=== PATIENT | male | born 1960 | race Caucasian/White ===

== ENCOUNTER → 2020-03-09 15:12 | Outpatient (CLI) | payer BC, SELFPAY ==
[2020-03-09 15:20] LABS: Basophils # 0.1 K/mm3 (0-0.2); Basophils % 1.7 % (0.1-2.0); Eosinophils # 0.3 K/mm3 (0.0-0.4); Eosinophils % 5.2 % (0.1-12.0); Hematocrit 55.2 % (42.0-52.0); Lymphocytes # 1.2 K/mm3 (0.7-4.5); Lymphocytes % 23.5 % (10-50); Mean Corpuscular HGB Conc 34.2 g/dL (31.8-35.4); Mean Corpuscular Volume 96.5 fl (80-94); Monocytes # 0.4 K/mm3 (0.1-1.0); Monocytes % 7.1 % (1.7-9.3); Neutrophils # 3.3 K/mm3 (1.8-7.8); Neutrophils % 62.5 % (37.0-80.0); Platelet Count 232 K/mm3 (142-424); Red Blood Count 5.72 M/mm3 (4.60-6.20); White Blood Count 5.3 K/mm3 (4.8-10.8)
[2020-03-09 15:21] LABS: Hemoglobin 18.9 g/dL (14.1-18.0)
[2020-03-09 15:26] LABS: Chloride 104 mmol/L (98-107)
[2020-03-09 15:27] LABS: Potassium 4.6 mmoL/L (3.5-5.1); Sodium 137 mmol/L (136-145)
[2020-03-09 15:29] LABS: Alanine Aminotransferase 30 U/L (12-78); Alkaline Phosphatase 108 U/L (38-126); Aspartate Amino Transferase 26 U/L (17-59); Bilirubin,Total 0.9 mg/dl (0.2-1.3); Blood Urea Nitrogen 16 mg/dl (9-20); Estimated Glomerular Filt Rate 77 ml/min (>60); GFR (African American) 93 ML/MIN (>60)
[2020-03-09 15:30] LABS: Albumin Level 4.5 g/dl (3.5-5.0); Albumin/Globulin Ratio 1.4 (1.1-1.8); Anion Gap 8.6 mEq/L (5-15); Calcium 10.1 mg/dl (8.4-10.2); Carbon Dioxide 29 mmol/L (22.0-30.0); Chol/HDL Ratio 6.3 (1-3.5); Cholesterol 194 mg/dl (140-200); Globulin 3.3 g/dL (1.3-3.2); Glucose 254 mg/dl (74-100); HDL Cholesterol 31 mg/dl (40-60); Total Protein,Serum 7.8 g/dl (6.3-8.2); Triglycerides 273 mg/dl (30-150); VLDL Cholesterol 55 mg/dL (0-40)
[2020-03-09 15:41] LABS: Direct LDL Cholesterol 118.51 mg/dL (100-129)
[2020-03-09 16:00] LABS: Thyroid Stimulating Hormone 1.39 uIU/mL (0.465-4.68)
[2020-03-11 10:17] LABS: PSA, Free 0.44 ng/mL; Prostate Specific Ag 1.3 ng/mL (0.0-4.0)
== END ==
PROVIDERS: Visit Provider Family Medicine
DX: I10 Essential (primary) hypertension (principal); E78.5 Hyperlipidemia, unspecified; F51.01 Primary insomnia; F39 Unspecified mood [affective] disorder; F17.210 Nicotine dependence, cigarettes, uncomplicated; M54.5 Low back pain
CPT/HCPCS: 80053; 80061; 83036; 84153; 84154; 84443; 85025

== ENCOUNTER → 2020-10-14 14:13 | Outpatient (CLI) | payer BC, SELFPAY ==
--- NOTE | 2020-10-14 14:17 | XR_ITS ---
PROCEDURE: XR HIP LT 2-3V W/PELVIS CLINICAL INDICATION: pain Left hip pain COMPARISON: No exams were available for comparison FINDINGS: No fracture or dislocation. No lytic or blastic change. There is some mild osteophyte formation along the inferior aspect of the acetabulum on both sides. IMPRESSION: Mild degenerative change otherwise negative Dictated by: Sreedhar Coyle MD 10/14/2020 15:39 Sreedhar Coyle MD in [place] 10/14/2020 15:39
--- NOTE | 2020-10-14 14:17 | XR_ITS ---
PROCEDURE: XR LUMBAR SPINE 2-3V CLINICAL INDICATION: pain COMPARISON: No exams were available for comparison FINDINGS: There is normal alignment. No acute fracture or dislocation is evident. No lytic or blastic change. There are degenerative changes in the lower thoracic spine. Small endplate osteophytes are present at L3 and L4. Bilateral renal calculi are noted measuring 4 mm in the lower pole on the right upper pole on the left and lower pole on the left. No obvious ureteral calculi. IMPRESSION: 1. Mild degenerative change of the spine. 2. Bilateral nephrolithiasis Dictated by: Sreedhar Coyle MD 10/14/2020 15:42 Sreedhar Coyle MD in [place] 10/14/2020 15:42
== END ==
PROVIDERS: PCP Family Medicine; Visit Provider Family Medicine
DX: M25.552 Pain in left hip (principal); M54.5 Low back pain
CPT/HCPCS: 72100; 73502

== ENCOUNTER → 2020-10-14 19:35 | Outpatient (CLI) | payer BC, SELFPAY ==
[2020-10-14 20:02] LABS: Hemoglobin A1C 7.6 % (4.0-6.0)
== END ==
PROVIDERS: Visit Provider Family Medicine
DX: E11.9 Type 2 diabetes mellitus without complications (principal); Z79.84 Long term (current) use of oral hypoglycemic drugs
CPT/HCPCS: 83036

== ENCOUNTER → 2021-05-23 08:55 | Outpatient (POV) | payer OTHER, SELFPAY ==
[2021-05-23 09:03] VITALS: BP 144/86; PULSE 74; RESP 18; TEMP 36.2; O2SAT 97; BMI 27.8
--- NOTE | 2021-05-23 09:12 | HMH.PMCON ---
Assessment and Plan (1) Sacroiliitis Status: Acute Category: Medical Code(s): M46.1 - Sacroiliitis, not elsewhere classified - Assessment and plan all Dx Assessment and Plan for all problems:: Patient presents with worsening left hip/SI pain that started about a year ago. This is worse with prolonged sitting, standing, and walking. 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 This is making his work a lot more unbearable. Patient has tried physical therapy and at home exercises for greater than 6 weeks. Left SI is positive for ADRY, Kristi's, [place]'s, [place]'s, compression, and distraction. Risks and benefits of the procedure have been explained to the patient. Patient would like to proceed with the procedure. Patient has been instructed to contact the clinic with any concerns before the next appointment. Dr. Sterling has reviewed this note and agrees with this plan of care. This note was dictated using voice recognition software and make contain errors or omissions. HPI - Data of Consult Patient: new to practice Consult date: 05/23/21 Requesting Physician: JAYME Guthrie Primary Care Provider: Adam Howard MD - Consult Narrative Reason for consult: Left hip pain History of present illness: Mr. Mann is a 61 year old male who presents today as a new patient. Patient is referred by Dr. Howard. Thank you for the referral. Patient presents today with left hip pain has been worsening in the last year. Patient denies any recent falls or traumas that precipitated his hip pain. Patient states that the pain is mainly around his left upper buttock that radiates down sometimes to his left knee. He cannot tolerate any prolonged activity such as sitting, standing, and walking. 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 He has tried taking qkui-qbd-lsrvjto medication such as Tylenol and Advil with no relief of symptoms. He is on Celebrex and was recently started on [place] 7.[address] Howard. He states that these medications are not helping him as well. He also has tried different topical creams with no help. Rates pain today as 4 out of 10. [facility] #[id number] active morphine equivalent of 0. CC: JAYME Guthrie [facility] History I have reviewed the patient's past medical history: Yes Medical History: Reports:: Congestive Heart Failure, Diabetes Mellitus Type 1, Hyperlipidemia, Hypertension *Have you ever received a pneumonia vaccine?: No *Have you received a flu vaccine this season?: Yes Other Medical History: Reports: Arthritis Other Surgeries: Yes: No Previous Surgery - *Social History Smoking Status: Current every day smoker Tobacco Type: cigarettes # Packs/Day (cigarettes): 1 #Yrs smoked (if former smoker): 40 Alcohol Intake: current Alcohol Intake Frequency:: a few times a week Substance Use Type: denies use *Occupational Status:: employed Housing: house Household Members: spouse *Travel in the last 8 weeks: [facility] Family Hx:: No significant family history Review of Systems - Review of Systems Review of Systems: General: No recent weight changes, no fever, no sleep disturbances Respiratory: No cough, no shortness of air, no recurring pulmonary infections Cardiovascular/peripheral vascular: No chest pain, no palpitations, no edema, no shortness of breath Gastrointestinal: No new onset incontinence, normal bowel movements reported Genitourinary: No new onset incontinence Musculoskeletal: Left SI pain/hip Psychiatric: [Normal mood/affect] Neurological: [Denies weakness in extremities], [denies balance issues] Meds Home Medications Medication Instructions Recorded Confirmed Type aspirin 81 mg tablet,delayed 81 mg PO DAILY 09/09/19 05/03/21 History release omega-3 fatty acids 1,000 mg 1,000 mg PO DAILY 09/09/19 05/03/21 History capsule clobetasol 0.05 % topical cream 1 applic TOPICAL BID 14 Days #60 g 05/14/20 05/03/21 Rx famotidine 20
== END ==
PROVIDERS: Visit Provider Student in an Organized Health Care Education/Training Program
DX: M46.1 Sacroiliitis, not elsewhere classified (principal)
CPT/HCPCS: 99202; G0463

== ENCOUNTER 2021-05-27 07:47 | Day surgery (SDC) | payer OTHER, SELFPAY ==
[2021-05-27 08:07] VITALS: BP 137/81; PULSE 69; RESP 18; TEMP 36.4; O2SAT 97; BMI 27.8
[2021-05-27 08:23] VITALS: BP 133/93; PULSE 68; RESP 18; O2SAT 98
[2021-05-27 08:28] VITALS: BP 166/74; PULSE 63; RESP 18; O2SAT 96
--- NOTE | 2021-05-27 08:33 | HMH.PMPROC ---
- Procedure Date: 05/27/21 Time: 08:33 Anesthesiologist:: Reid Malcolm CRNA Complications:: None Pre-procedure Diagnosis:: Left sacroiliitis Post-procedure Diagnosis:: left Sacroiliitis Indications for Procedure:: Very pleasant 61-year-old white male who has extreme point tenderness over the left SI joint. He complains of pain increasing when standing and/or sitting for any length of time. He rates his pain 7/10. He presents for left SI joint injection today. Procedure Details:: Procedure: Left sacroiliac injection under fluoroscopy Informed consent was obtained and the risk and benefits of the procedure were explained to the patient.~ The patient was taken to the procedure room and noninvasive monitors were placed including noninvasive blood pressure cuff and pulse oximeter.~ The patient was placed prone on the procedure table.~ The~ left hip was cleansed using Betadine as a cleansing solution.~ C-arm fluorosocpy was used to view the left SI joint.~ The skin and subcutaneous tissues were anesthetized using Lidocaine 1.5% and a 25-gauge needle.~ After this, a 22-gauge spinal needle was inserted under fluoroscopic guidance into the inferior aspect of the left SI joint.~ Omnipaque dye was injected and a good spread was seen throughout the joint.~ After this, approximately 5 mL of bupivacaine 0.25% and Depo-Medrol 40 mg was incrementally injected into the sacroiliac joint.~ The patient tolerated the procedure well with no complications.~ The patient was observed in the Pain Clinic for a period of 30-45 minutes, then discharged home neurologically intact.~ Plan and Disposition:: Patient was discharged without pain. He will return to see us in the clinic for follow-up.
[2021-05-27 08:37] VITALS: BP 132/83; PULSE 60; RESP 18; O2SAT 97
== END 2021-05-27 08:38 | disposition home or self-care (01) ==
LOC: SC.PAINP 07:48
PROVIDERS: PCP Family Medicine; Visit Provider Nurse Anesthetist, Certified Registered
DX: M46.1 Sacroiliitis, not elsewhere classified (principal); E10.9 Type 1 diabetes mellitus without complications; E78.5 Hyperlipidemia, unspecified; I11.0 Hypertensive heart disease with heart failure; I50.9 Heart failure, unspecified; F41.9 Anxiety disorder, unspecified; Z72.0 Tobacco use
CPT/HCPCS: 27096; G0260; J1040

== ENCOUNTER → 2021-06-27 09:03 | Outpatient (POV) | payer OTHER, SELFPAY ==
[2021-06-27 09:41] VITALS: BP 142/103; PULSE 71; RESP 18; TEMP 37.1; O2SAT 97; BMI 28.7
--- NOTE | 2021-06-27 10:10 | P.CONS_ITS ---
[facility] Pain Management SOAP Note Subjective:: Patient is a pleasant 61-year-old male who presents today for follow-up after a left-sided SI injection on May 27, 2021. Patient is currently being treated for sacroiliitis. After the procedure, patient says that he did not start getting relief until 2 weeks after the injection. He states that he has about 70 to 80% relief after the injection. He does have some pain still when he sleeping and when he starts walking for long periods of time. This does get better now whenever he sits down. He has been able to increase his activity since the injection. He rates his pain today as 1 out of 10. He takes Celebrex for pain. He was also recently started [place] [address] Howard. [facility] 1 [id number] with an active morphine equivalent of 0. Review of Systems: General: No recent weight changes, no fever, no sleep disturbances Respiratory: No cough, no shortness of air, no recurring pulmonary infections Cardiovascular/peripheral vascular: No chest pain, no palpitations, no edema, no shortness of breath Gastrointestinal: No new onset incontinence, normal bowel movements reported Genitourinary: No new onset incontinence Musculoskeletal: Left-sided hip pain Psychiatric: [Normal mood/affect] Neurological: [Denies weakness in extremities], [denies balance issues] Objective:: Physical Exam: General: Alert and oriented x3, no acute distress, pleasant and cooperative Lungs: Respirations even and unlabored, symmetrical chest expansion Eyes: PERRL Musculoskeletal: Left SI is positive for ADRY, Kristi's, [place]'s, Gaens[place]'s, compression, and distraction. Neurological: Speech clear, no gross sensory deficit Assessment:: Left-sided sacroiliitis Plan:: Patient continues to have relief after the left SI injection. He has been having some issues with sleeping on his left side and walking for long peers of time. He says that his pain has become more tolerable unlike before. I have offered the patient a muscle relaxant at bedtime but he said that he has tried this before and it did not help with his pain. It only made him really sleepy. We will follow-up with this patient in 2 months to see if he needs a repeat injection. Patient has been instructed to contact the clinic with any concerns before the next appointment. Dr. Sterling has reviewed this note and agrees with this plan of care. This note was dictated using voice recognition software and make contain errors or omissions. [facility] History Medical History: Reports:: Congestive Heart Failure, Diabetes Mellitus Type 2, Hyperlipidemia, Hypertension Denies:: Cancer, Diabetes Mellitus Type 1, MRSA *Have you ever received a pneumonia vaccine?: No *Have you received a flu vaccine this season?: No Other Medical History: Reports: Arthritis Other Surgeries: Yes: No Previous Surgery, Colonoscopy Amputation: No Fractures: No - *Social History Smoking Status: Current every day smoker Tobacco Type: cigarettes # Packs/Day (cigarettes): 1 #Yrs smoked (if former smoker): 40 Alcohol Intake: never Alcohol Intake Frequency:: a few times a week Substance Use Type: denies use *Occupational Status:: employed Housing: house Household Members: spouse *Travel in the last 8 weeks: None Family Hx:: No significant family history
== END ==
PROVIDERS: Visit Provider Student in an Organized Health Care Education/Training Program
DX: M46.1 Sacroiliitis, not elsewhere classified (principal)
CPT/HCPCS: 99212; G0463

== ENCOUNTER → 2021-08-29 11:27 | Outpatient (POV) | payer OTHER, SELFPAY ==
[2021-08-29 12:10] VITALS: BP 141/75; PULSE 64; RESP 20; TEMP 36.7; O2SAT 97; BMI 28.7
--- NOTE | 2021-08-29 14:15 | P.CONS_ITS ---
[facility] Pain Management SOAP Note Subjective:: Patient is a pleasant 61-year-old male who presents today for follow-up. Patient is currently being treated for left-sided sacroiliitis, left hip pain. We have been managing this patient with injective therapy. He had a left SI injection in May that provided some relief for couple of weeks. He states that that injection did decrease some of his discomfort. Today, he is complaining of pain around the left upper buttock but is more lateral. Denies any loss of bowel and bladder functions. Pain is better when he sits. He cannot tolerate prolonged standing and walking. He does continue to work. He takes OTC Meds for pain. Rates pain today as 5/10. Naldo [id number], MEQ 0. Review of Systems: General: No recent weight changes, no fever, no sleep disturbances Respiratory: No cough, no shortness of air, no recurring pulmonary infections Cardiovascular/peripheral vascular: No chest pain, no palpitations, no edema, no shortness of breath Gastrointestinal: No new onset incontinence, normal bowel movements reported Genitourinary: No new onset incontinence Musculoskeletal: Left hip pain Psychiatric: [Normal mood/affect] Neurological: [Denies weakness in extremities], [denies balance issues] Objective:: Physical Exam: General: Alert and oriented x3, no acute distress, pleasant and cooperative Lungs: Respirations even and unlabored, symmetrical chest expansion Eyes: PERRL Musculoskeletal: Patient does not have significant point of tenderness around the left SI joint. He does have pain to palpation around the left lateral upper buttock. He has a negative SI exam. When doing the ADRY test, his pain is mostly around his left hip joint. Neurological: Speech clear, no gross sensory deficit Assessment:: Left hip pain, sacroiliitis, superior cluneal nerve entrapment Plan:: Patient had minimal relief after a left SI injection. Patient does have a negative SI exam today. We will schedule the patient for a left superior cluneal nerve block. We will start this patient on diclofenac 75 mg twice a day and tizanidine 4 mg at bedtime. Patient has been instructed to contact the clinic with any concerns before the next appointment. Dr. Sterling has reviewed this note and agrees with this plan of care. This note was dictated using voice recognition software and make contain errors or omissions. [facility] History Medical History: Reports:: Congestive Heart Failure, Diabetes Mellitus Type 2, Hyperlipidemia, Hypertension Denies:: Cancer, Diabetes Mellitus Type 1, MRSA *Have you ever received a pneumonia vaccine?: No *Have you received a flu vaccine this season?: No Other Medical History: Reports: Arthritis Other Surgeries: Yes: No Previous Surgery, Colonoscopy Amputation: No Fractures: No - *Social History Smoking Status: Current every day smoker Tobacco Type: cigarettes # Packs/Day (cigarettes): 1 #Yrs smoked (if former smoker): 40 Alcohol Intake: never Alcohol Intake Frequency:: a few times a week Substance Use Type: denies use *Occupational Status:: other Housing: house Household Members: spouse *Travel in the last 8 weeks: None Family Hx:: No significant family history
== END ==
PROVIDERS: PCP Family Medicine; Visit Provider Student in an Organized Health Care Education/Training Program
DX: M46.1 Sacroiliitis, not elsewhere classified (principal); G58.8 Other specified mononeuropathies; M25.552 Pain in left hip
CPT/HCPCS: 99212; G0463

== ENCOUNTER 2021-09-13 08:42 | Day surgery (SDC) | payer OTHER, SELFPAY ==
[2021-09-13 08:58] VITALS: BP 153/78; PULSE 76; RESP 20; TEMP 36.5; O2SAT 98; BMI 27.8
--- NOTE | 2021-09-13 09:18 | HMH.PMPROC ---
- Procedure Date: 09/13/21 Time: 09:19 Anesthesiologist:: Reid Malcolm CRNA Complications:: None Pre-procedure Diagnosis:: Left sacroiliitis. 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 Lumbar spondylosis. Post-procedure Diagnosis:: Same Indications for Procedure:: This patient is a pleasant 61-year-old male who presents today for left cluneal nerve block. Discussed in detail with the patient prior to procedure regarding his pain on the left side of his lumbar spine. Patient is status post 1 left sacroiliac joint injection which essentially rendered no relief. Patient has a very specific spot where his pain is. I put a marker over the spot. Under fluoroscopy this was directly over the left L5-S1 facet joint. Patient's pain is certainly mechanical. Axial in nature as well. Patient rates the pain 8/10. Patient has difficulty standing, sleeping, sitting. I discussed in detail with the patient regarding injecting the left L5-S1 facet joint. He wishes to proceed. If in fact this does not render any relief we can pursue the cluneal nerve block. Patient agrees. Procedure Details:: Informed consent was obtained and the risk and benefits of the procedure was explained to the patient. Patient was taken to the procedure room where noninvasive monitors were placed, including noninvasive blood pressure cuff as well as pulse oximeter. The area over the lumbar spine was cleansed using chlorhexidine as a cleansing solution. I anesthetized the skin and subcutaneous tissues with 1% Lidocaine. I placed 22-gauge spinal needles into the facet joint/ medial branches of left L4?5, L5-S1. Needle placement was confirmed with fluoroscopy. After confirmation of needle placement, each site was injected with 1 mL of 1% lidocaine and 0.25 % Marcaine and 10 mg of Depo-Medrol. A total of 40 mg of depo medrol was used for medial branch blocks of the left 4 5, L5-S1. Patient tolerated the procedure without difficulty. There were no complications. Plan and Disposition:: Patient was reevaluated 10 minutes post procedure. He had been performing multiple task that required bending, standing, walking, sitting, standing from a sitting position multiple times. Patient reports no pain. Patient reports his pain is gone 100%. I informed the patient in detail regarding 3 to 4 hours of local anesthesia in the joints. At this time the anesthesia will wear off and his pain will return. There will be 2 to 3-day delay in relief waiting for the steroid to work. Patient will follow-up in the clinic.
[2021-09-13 09:35] VITALS: BP 148/82; PULSE 69; RESP 20; O2SAT 99
== END 2021-09-13 09:35 | disposition home or self-care (01) ==
LOC: SC.PAINP 08:45
PROVIDERS: PCP Family Medicine; Visit Provider Nurse Anesthetist, Certified Registered
DX: M46.1 Sacroiliitis, not elsewhere classified (principal); M47.816 Spondylosis without myelopathy or radiculopathy, lumbar region
CPT/HCPCS: 64493; 64494; J1040

== ENCOUNTER → 2021-09-26 11:36 | Outpatient (POV) | payer OTHER, SELFPAY ==
[2021-09-26 11:43] VITALS: BP 147/91; PULSE 63; RESP 18; TEMP 36.5; O2SAT 100; BMI 27.8
--- NOTE | 2021-09-26 12:02 | HMH.PAINSOAP ---
[facility] Pain Management SOAP Note Subjective:: Is a pleasant 61-year-old male who presents today for follow-up from his left cluneal block on 09/13/2021. We are currently treating the patient for a left-sided sacroiliitis, left L4-5, L5-S1 arthropathy, lumbar spondylosis, left hip pain. Patient states he has had significant improvement from this injection. He rates a 80 to 90% relief of symptoms and feels like this is still helping him. Patient states he has been able to increase his activity since this injection. Today he rates his pain a 4 out of 10. And states his pain is all in his low back and describes it as a aching, throbbing sensation that is worse with activity. He states this pain does radiate into both bilateral leg extremities. He denies any new trauma or injury to the site. He states he has had this issues for the last couple of years. He states he did have a lumbar x-ray last year that showed degenerative disc disease. Patient states he has tried qpqb-flk-kadlbvn Tylenol and ibuprofen with minimal relief of symptoms. Patient is on diclofenac 75 mg twice a day however he states he notices minimal improvement. He is also used topical creams with no improvement. He is interested in injections at today's visit. He has failed conservative treatment such as oral medications, physical therapy and home exercise and stretching for longer than 6 weeks. His Naldo is [id number]. He has been reviewed and appropriate. Review of Systems: General: No recent weight changes, no fever, no sleep disturbances Respiratory: No cough, no shortness of air, no recurring pulmonary infections Cardiovascular/peripheral vascular: No chest pain, no palpitations, no edema, no shortness of breath Gastrointestinal: No new onset incontinence, normal bowel movements reported Genitourinary: No new onset incontinence Musculoskeletal: Low back pain, bilateral leg pain Psychiatric: [Normal mood/affect] Neurological: [Denies weakness in extremities], [denies balance issues] Objective:: Physical Exam: General: Alert and oriented x3, no acute distress, pleasant and cooperative Lungs: Respirations even and unlabored, symmetrical chest expansion Eyes: PERRL Musculoskeletal: Flexion and extension of lumbar [spine] somewhat guarded secondary to pain, [antalgic gait noted] Neurological: Speech clear, no gross sensory deficit Assessment:: Left sacroiliitis, left L4-5, L5-S1 arthropathy, lumbar spondylosis, left hip pain, degenerative disc disease of lumbar spine with lumbar radiculopathy symptoms Plan:: Patient has had significant improvement in his pain symptoms around his left cluneal however today he is having worsening low back pain that radiates into his bilateral legs. Patient did have a lumbar x-ray in 10/2020 showing mild degenerative disc disease of his lumbar spine. I have discussed with the patient regarding getting updated imaging with a lumbar MRI. I will order a lumbar MRI and I have also discussed with the patient regarding an epidural steroid injection. Risk and benefits were discussed with the patient. He would like to proceed forward with this injection. He is not currently on any blood thinners. We will schedule him for a lumbar epidural steroid injection at L4-L5. Patient has been instructed to contact the clinic with any concerns before the next appointment. Dr. Sterling has reviewed this note and agrees with this plan of care. This note was dictated using voice recognition software and make contain errors or omissions. [facility] History I have reviewed the patient's past medical history: Yes Medical History: Reports:: Congestive Heart Failure, Diabetes Mellitus Type 2, Hyperlipidemia, Hypertension Denies:: Cancer, Diabetes Mellitus Type 1, MRSA *Have you ever received a pneumonia vaccine?: No *Have you received a flu vaccine this season?: No Other Medical History: Reports: Arthritis Other Surgeries: Yes: No Previous Surgery, Colonoscopy Amputation: No Fractur
== END ==
PROVIDERS: PCP Family Medicine; Visit Provider Nurse Practitioner Family
DX: M51.16 Intervertebral disc disorders with radiculopathy, lumbar region (principal); M46.1 Sacroiliitis, not elsewhere classified; M47.26 Other spondylosis with radiculopathy, lumbar region
CPT/HCPCS: 99212; G0463

== ENCOUNTER → 2021-10-31 14:13 | Outpatient (CLI) | payer OTHER, SELFPAY ==
--- NOTE | 2021-10-31 14:18 | MR_ITS ---
FINAL REPORT TECHNIQUE: Multiplanar MR without contrast CLINICAL HISTORY: BACK PAIN. LOW BACK PAIN. INTERMITTENT BILATERAL KNEE PAIN. SYMPTOMS XYEARS. FINDINGS: Sagittal images show normal vertebral height. Alignment is normal. There are hemangiomas of T12 and S1. Marrow signal pattern is otherwise unremarkable. Bony spinal canal is smaller than normal on a congenital basis. L1-2: Unremarkable L2-3: Unremarkable L3-4: Minimal annular disc bulge with mild central canal stenosis. L4-5: Mild annular disc bulge with moderate facet arthropathy, moderate central canal stenosis and mild bilateral neural foraminal narrowing. L5-S1: Mild annular disc bulge, mild facet arthropathy and mild bilateral neural foraminal narrowing. IMPRESSION: Multilevel degenerative disc disease with [id number]-wj-wtkqquiv central canal stenosis and neural foraminal narrowing as above. Reviewed, Interpreted and Dictated by Liz Dias MD Transcribed by Winter Alberto Authenticated and [facility]
== END ==
PROVIDERS: PCP Family Medicine; Visit Provider Nurse Practitioner Family
DX: M54.50 Low back pain, unspecified (principal)
CPT/HCPCS: 72148; 76376

== ENCOUNTER 2021-11-01 13:29 | Day surgery (SDC) | payer OTHER, SELFPAY ==
[2021-11-01 13:47] VITALS: BP 138/79; PULSE 68; RESP 18; TEMP 36.9; O2SAT 97; BMI 28.7
[2021-11-01 13:56] VITALS: BP 133/81; PULSE 64; RESP 18; O2SAT 97
[2021-11-01 13:58] VITALS: BP 144/92; RESP 18
--- NOTE | 2021-11-01 14:03 | EXP.PAIN.PRO ---
Procedure Date: 11/01/21 Time: 14:00 Anesthesiologist:: Reid Malcolm CRNA Complications:: None Pre-procedure Diagnosis:: Degenerative disc disease lumbar spine multilevels. Lumbar radiculopathy. Post-procedure Diagnosis:: Same. Indications for Procedure:: Patient is a very pleasant 61-year-old male that comes our clinic today for lumbar epidural steroid injection at L4-5 level. Patient complains of low back pain as well as bilateral hip and leg radicular symptoms at times. 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 He he rates his low back pain 7/10. Also complains of bilateral hip and leg radicular symptoms at times. Procedure Details:: Procedure: Lumbar epidural steroid injection under fluoroscopy Informed consent was obtained and the risks and benefits of the procedure were explained to the patient. The patient was taken to the procedure room and noninvasive monitors placed, including noninvasive blood pressure cuff and pulse oximeter. The back was viewed using C-arm Fluoroscopy and prepped using Betadine as a cleansing solution and the L4-L5 interspace was palpated. Skin and subcutaneous tissues were anesthetized using lidocaine 1.5% and a 25-gauge needle. After this, an 18-gauge Touhy epidural needle was placed into the L4-L5 interspace and advanced using fluoroscopic guidance and loss of resistance to air until the epidural space was encountered. After confirmation of needle placement in the epidural space, with dye, a solution containing lidocaine 1.5%, 4 mL and Depo-Medrol 80 mg were incrementally injected into the lumbar epidural space. The patient tolerated the procedure well with no complications. The patient was observed in the Pain Clinic and then discharged home neurologically intact. Plan and Disposition:: Patient was discharged from the clinic without incident.
[2021-11-01 14:04] VITALS: BP 144/82; PULSE 65; RESP 18; O2SAT 100
== END 2021-11-01 14:04 | disposition home or self-care (01) ==
PROVIDERS: PCP Family Medicine; Visit Provider Nurse Anesthetist, Certified Registered
DX: M51.16 Intervertebral disc disorders with radiculopathy, lumbar region (principal)
CPT/HCPCS: 62323; J1040

== ENCOUNTER → 2021-11-14 14:12 | Outpatient (POV) | payer OTHER, SELFPAY ==
[2021-11-14 14:20] VITALS: BP 159/89; PULSE 90; RESP 19; TEMP 37; O2SAT 96; BMI 28.7
--- NOTE | 2021-11-14 16:36 | EXP.PAIN.SOA ---
[facility] Pain Management SOAP Note Subjective:: Patient is a pleasant 61-year-old male who presents today for follow-up. Patient is being treated for degenerative disc disease of the lumbar spine with lumbar radiculopathy symptoms, superior cluneal nerve entrapment, lumbar facet arthropathy, lumbar spondylosis. We recently tried lumbar epidural straight injection at L4-L5 on 11/01/2021 that provided significant relief of 60 to 70% for about a week. In the past, we also have done a left superior cluneal nerve block and medial branch block at L5-S1 that provided significant relief of 70 to 80%. Today, patient is complaining of localized pain around the low back. This is worse with any prolonged activity such as standing and walking. At the end of the day, he states that his back is the worst. This does get better whenever he rests. For pain, he takes diclofenac and tizanidine. He was taking hydrocodone on rare occasions. This prescribed by his PCP. Naldo [id number] with an active morphine equivalent of 0. Review of Systems: General: No recent weight changes, no fever, no sleep disturbances Respiratory: No cough, no shortness of air, no recurring pulmonary infections Cardiovascular/peripheral vascular: No chest pain, no palpitations, no edema, no shortness of breath Gastrointestinal: No new onset incontinence, normal bowel movements reported Genitourinary: No new onset incontinence Musculoskeletal: Low back pain Psychiatric: [Normal mood/affect] Neurological: [Denies weakness in extremities], [denies balance issues] Objective:: Physical Exam: General: Alert and oriented x3, no acute distress, pleasant and cooperative Lungs: Respirations even and unlabored, symmetrical chest expansion Eyes: PERRL Musculoskeletal: Flexion and extension of lumbar [spine] somewhat guarded secondary to pain, [antalgic gait noted]; positive Kemps test, tender to palpation around the lumbar facets Neurological: Speech clear, no gross sensory deficit Imaging: TECHNIQUE: Multiplanar MR without contrast CLINICAL HISTORY: BACK PAIN. LOW BACK PAIN. INTERMITTENT BILATERAL KNEE PAIN. SYMPTOMS XYEARS. FINDINGS: Sagittal images show normal vertebral height. Alignment is normal.? There are hemangiomas of T12 and S1.? Marrow signal pattern is otherwise unremarkable.? Bony spinal canal is smaller than normal on a congenital basis.? L1-2: Unremarkable ? L2-3: Unremarkable? L3-4:? Minimal annular disc bulge with mild central canal stenosis.? L4-5:? Mild annular disc bulge with moderate facet arthropathy, moderate central canal stenosis and mild bilateral neural foraminal narrowing.? L5-S1:? Mild annular disc bulge, mild facet arthropathy and mild bilateral neural foraminal narrowing. IMPRESSION: Multilevel degenerative disc disease with [id number] central canal stenosis and neural foraminal narrowing as above. 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 Will schedule the pt for diagnostic MBB at bilateral L4-L5, L5-S1. Pt is not on any bloodthinners. Will start pt on tramadol 50mg BID #28 tabs. Will cont diclofenac 75mg BID and tizanidine. Patient has been instructed to contact the clinic with any concerns before the next appointment. Dr. Sterling has reviewed this note and agrees with this plan of care. This note was dictated using voice recognition software and make contain errors or omissions. [facility] Medical History (Updated 11/01/21 @ 13:51 by Marleny Vang RN) Degenerative disc disease Diabetes mellitus, type 2 Ganglion, right wrist Surgical History (Updated
== END | disposition home or self-care (01) ==
PROVIDERS: Visit Provider Student in an Organized Health Care Education/Training Program
DX: M51.16 Intervertebral disc disorders with radiculopathy, lumbar region (principal); M47.26 Other spondylosis with radiculopathy, lumbar region; Z72.0 Tobacco use
CPT/HCPCS: 99212; G0463

== ENCOUNTER 2021-12-13 13:17 | Day surgery (SDC) | payer OTHER, SELFPAY ==
[2021-12-13 13:31] VITALS: BP 130/81; PULSE 73; RESP 18; TEMP 36.6; O2SAT 99; BMI 28.7
[2021-12-13 13:42] VITALS: BP 141/97; PULSE 64; RESP 18
[2021-12-13 13:44] VITALS: BP 141/97; PULSE 64; RESP 18; O2SAT 97
[2021-12-13 13:50] VITALS: BP 140/74; PULSE 65; RESP 18; O2SAT 99
--- NOTE | 2021-12-13 13:52 | EXP.PAIN.PRO ---
Procedure Date: 12/13/21 Time: 14:00 Anesthesiologist:: Reid Malcolm CRNA Complications:: None Pre-procedure Diagnosis:: Degenerative disc disease MR spine multilevels. Lumbar spondylosis. Multilevel lumbar facet arthropathy. Post-procedure Diagnosis:: Same. Indications for Procedure:: This patient is a pleasant 61-year-old male that comes our clinic today for right side L4-5, L5-S1 medial branch block/facet block. Patient responded very well on the left side with medial branch blocks as well as subsequent radiofrequency ablation the left L4-5, L5-S1. Procedure Details:: Details of the procedure were explained to the patient. The patient taken the procedure room placed in the prone position on the fluoroscopy table. The lumbar spine was cleaned using chlorhexidine as a cleansing solution. Markers were placed using fluoroscopy guidance over the right L4-5 and L5-S1 facet joint. Using fluoroscopy guidance and a 3 inch 25-gauge needle the 4 5 facet was accessed with ease and 1 cc of 1% lidocaine and 20 mg of Depo-Medrol was injected. The same procedure was carried out at the right L5-S1. Patient tolerated the procedure without difficulty. There are no complications Plan and Disposition:: I described in detail to the patient regarding the duration of numbing medicine for the lumbar back. Also, potential of cortisone to give him some extended relief. However, I informed the patient regarding this being a diagnostic injection primarily. He was discharged from the clinic without incident.
== END 2021-12-13 13:50 | disposition home or self-care (01) ==
LOC: SC.PAINP 13:18
PROVIDERS: PCP Family Medicine; Visit Provider Nurse Anesthetist, Certified Registered
DX: M51.16 Intervertebral disc disorders with radiculopathy, lumbar region (principal); M47.26 Other spondylosis with radiculopathy, lumbar region
CPT/HCPCS: 64493; 64494; J1030

== ENCOUNTER → 2022-01-04 15:05 | Outpatient (POV) | payer OTHER, SELFPAY ==
[2022-01-04 15:11] VITALS: BP 140/85; PULSE 79; RESP 18; O2SAT 96; BMI 27.8
--- NOTE | 2022-01-04 15:21 | EXP.PAIN.SOA ---
[facility] Pain Management SOAP Note Subjective:: Patient is a pleasant 61-year-old male who presents today for follow-up of lumbar medial branch block L4-L5 and L5-S1 on the right side on 12/13/2021. We are currently treating the patient for degenerative disc disease of lumbar spine with lumbar radiculopathy symptoms, superior cluneal nerve entrapment, lumbar facet arthropathy, lumbar spondylosis. Today the patient states he has had approximately 50 to 60% relief following this injection and feels like it is still helping. Patient does rate his pain today a 2 out of 10 and states this is more his old pain that is around his mid to low back. Patient states this pain has been going on for 2 to 3 years and describes it as a constant achy sensation when he is been standing on his feet all day. Patient frequently takes diclofenac 75 mg and tizanidine 4 mg in combination that provides significant improvement. Patient has had multiple injections in the past including a lumbar epidural injection at L4-L5 that gave 60 to 70% relief for a week as well as a medial branch block and left superior cluneal nerve block that provided 70 to 80% relief short-term. Patient has been given tramadol 50 mg twice a day in the past and states this did help some with his symptoms. His Naldo is [id number]. It has been reviewed and appropriate. Review of Systems: General: No recent weight changes, no fever, no sleep disturbances Respiratory: No cough, no shortness of air, no recurring pulmonary infections Cardiovascular/peripheral vascular: No chest pain, no palpitations, no edema, no shortness of breath Gastrointestinal: No new onset incontinence, normal bowel movements reported Genitourinary: No new onset incontinence Musculoskeletal: Low back pain Psychiatric: [Normal mood/affect] Neurological: [Denies weakness in extremities], [denies balance issues] Objective:: Physical Exam: General: Alert and oriented x3, no acute distress, pleasant and cooperative Lungs: Respirations even and unlabored, symmetrical chest expansion Eyes: PERRL Musculoskeletal: Flexion and extension of lumbar [spine] somewhat guarded secondary to pain, [antalgic gait noted] Neurological: Speech clear, no gross sensory deficit Assessment:: Degenerative disc disease of lumbar spine with lumbar radiculopathy symptoms, superior cluneal nerve entrapment, lumbar facet arthropathy, lumbar spondylosis Plan:: Patient continues to experience moderate pain in his low back. Patient has had significant improvement with his last medial branch block of his lumbar spine and at this time does not need additional injective therapy. I have discussed with the patient that he may benefit from a lumbar epidural steroid injection at L3-L4 in the future. We will follow-up with this option at his later visits. I will order the patient a compounding cream. At this time the patient does not need any additional diclofenac or tizanidine refills. We will follow-up with the patient in 1 month for reevaluation of symptoms and follow-up. Patient has been instructed to contact the clinic with any concerns before the next appointment. Dr. Sterling has reviewed this note and agrees with this plan of care. This note was dictated using voice recognition software and make contain errors or omissions. [facility] Disclaimer: The information contained in this section may have been updated after the patient was seen, as this information can be updated by other users. Medical History Degenerative disc disease Diabetes mellitus, type 2 Ganglion, right wrist Surgical History History of surgical removal of ganglion cyst Family History Other No significant family history Social History Smoking Status: Current every da
== END ==
PROVIDERS: PCP Family Medicine; Visit Provider Nurse Practitioner Family
DX: M51.16 Intervertebral disc disorders with radiculopathy, lumbar region (principal); M47.26 Other spondylosis with radiculopathy, lumbar region; G58.8 Other specified mononeuropathies; Z72.0 Tobacco use
CPT/HCPCS: 99212; G0463

== ENCOUNTER → 2022-04-18 23:54 | Outpatient (CLI) | payer OTHER, SELFPAY ==
[2022-04-18 18:48] LABS: Basophils # 0.1 K/mm3 (0-0.2); Basophils % 1.3 % (0.1-2.0); Eosinophils # 0.5 K/mm3 (0.0-0.4); Eosinophils % 7.3 % (0.1-12.0); Hematocrit 51.5 % (42.0-52.0); Hemoglobin 17.2 g/dL (14.1-18.0); Lymphocytes # 1.6 K/mm3 (0.7-4.5); Lymphocytes % 25.5 % (10-50); Mean Corpuscular HGB Conc 33.4 g/dL (31.8-35.4); Mean Corpuscular Hemoglobin 31.8 pg (27.0-31.2); Mean Corpuscular Volume 95.1 fl (80-94); Mean Platelet Volume 8.1 fl (7.4-10.4); Monocytes # 0.6 K/mm3 (0.1-1.0); Monocytes % 9.2 % (1.7-9.3); Neutrophils # 3.5 K/mm3 (1.8-7.8); Neutrophils % 56.7 % (37.0-80.0); Platelet Count 272 K/mm3 (142-424); Red Blood Count 5.42 M/mm3 (4.60-6.20); Red Cell Distribution Width 13.2 % (11.5-17.5); White Blood Count 6.2 K/mm3 (4.8-10.8)
[2022-04-18 19:09] LABS: Alanine Aminotransferase 22 U/L (12-78); Albumin Level 4.3 g/dl (3.5-5.0); Albumin/Globulin Ratio 1.6 (1.1-1.8); Alkaline Phosphatase 106 U/L (38-126); Anion Gap 10.7 mEq/L (5-15); Aspartate Amino Transferase 20 U/L (17-59); Bilirubin,Total 0.8 mg/dl (0.2-1.3); Blood Urea Nitrogen 16 mg/dl (9-20); Calcium 9.4 mg/dl (8.4-10.2); Carbon Dioxide 25 mmol/L (22.0-30.0); Chloride 106 mmol/L (98-107); Chol/HDL Ratio 4.9 (1-3.5); Cholesterol 141 mg/dl (140-200); Estimated Glomerular Filt Rate 76 ml/min (>60); GFR (African American) 93 ML/MIN (>60); Globulin 2.7 g/dL (1.3-3.2); Glucose 161 mg/dl (74-100); HDL Cholesterol 29 mg/dl (40-60); Potassium 4.7 mmoL/L (3.5-5.1); Sodium 137 mmol/L (136-145); Triglycerides 129 mg/dl (30-150); VLDL Cholesterol 26 mg/dL (0-40)
[2022-04-18 19:20] LABS: Direct LDL Cholesterol 95.33 mg/dL (100-129)
[2022-04-18 19:40] LABS: Prostate Specific Ag Screen 2.7 ng/ml (0.0-4.0); Thyroid Stimulating Hormone 1.03 uIU/mL (0.465-4.68)
== END ==
PROVIDERS: PCP Family Medicine; Visit Provider Family Medicine
DX: Z00.00 Encounter for general adult medical examination without abnormal findings (principal); Z12.5 Encounter for screening for malignant neoplasm of prostate; Z79.899 Other long term (current) drug therapy
CPT/HCPCS: 80053; 80061; 82306; 84443; 85025; G0103

== ENCOUNTER 2023-04-19 21:18 | Outpatient (CLI) | payer OTHER, SELFPAY ==
[2023-04-19 18:46] LABS: Alanine Aminotransferase 21 U/L (12-78); Albumin Level 4.6 g/dl (3.5-5.0); Albumin/Globulin Ratio 1.5 (1.1-1.8); Alkaline Phosphatase 135 U/L (38-126); Anion Gap 11.6 mEq/L (5-15); Aspartate Amino Transferase 22 U/L (17-59); Bilirubin,Total 0.8 mg/dl (0.2-1.3); Blood Urea Nitrogen 16 mg/dl (9-20); Calcium 10.1 mg/dl (8.4-10.2); Carbon Dioxide 27 mmol/L (22.0-30.0); Chloride 106 mmol/L (98-107); Chol/HDL Ratio 5.6 (1-3.5); Cholesterol 168 mg/dl (140-200); Estimated Glomerular Filt Rate 68 ml/min (>60); GFR (African American) 83 ML/MIN (>60); Glucose 225 mg/dl (74-100); HDL Cholesterol 30 mg/dl (40-60); Potassium 4.6 mmoL/L (3.5-5.1); Sodium 140 mmol/L (136-145); Total Protein,Serum 7.6 g/dl (6.3-8.2); Triglycerides 128 mg/dl (30-150); VLDL Cholesterol 26 mg/dL (0-40)
[2023-04-19 18:51] LABS: Basophils # 0.1 K/mm3 (0-0.2); Basophils % 0.8 % (0.1-2.0); Eosinophils # 0.2 K/mm3 (0.0-0.4); Eosinophils % 2.9 % (0.1-12.0); Lymphocytes # 0.7 K/mm3 (0.7-4.5); Lymphocytes % 10.5 % (10-50); Mean Corpuscular HGB Conc 33.7 g/dL (31.8-35.4); Mean Corpuscular Volume 97.7 fl (80-94); Mean Platelet Volume 8.2 fl (7.4-10.4); Monocytes # 0.6 K/mm3 (0.1-1.0); Monocytes % 8.1 % (1.7-9.3); Neutrophils # 5.5 K/mm3 (1.8-7.8); Neutrophils % 77.7 % (37.0-80.0); Platelet Count 221 K/mm3 (142-424); Red Blood Count 5.64 M/mm3 (4.60-6.20); White Blood Count 7.1 K/mm3 (4.8-10.8)
[2023-04-19 18:53] LABS: Hematocrit 55.1 % (42.0-52.0); Hemoglobin 18.6 g/dL (14.1-18.0)
[2023-04-19 18:57] LABS: Direct LDL Cholesterol 109.26 mg/dL (100-129)
[2023-04-19 19:16] LABS: Prostate Specific Ag Screen 2.5 ng/ml (0.0-4.0)
[2023-04-19 19:19] LABS: Hemoglobin A1C 8.4 % (4.0-6.0)
== END 2023-04-19 23:59 ==
LOC: LAB.DROPOF 21:19
PROVIDERS: PCP Family Medicine; Visit Provider Family Medicine
DX: E11.9 Type 2 diabetes mellitus without complications (principal); F39 Unspecified mood [affective] disorder; Z79.899 Other long term (current) drug therapy; M54.50 Low back pain, unspecified
CPT/HCPCS: 80053; 80061; 83036; 85025; G0103

== ENCOUNTER 2024-05-01 10:40 | Outpatient (CLI) | payer OTHER, SELFPAY ==
[2024-05-01 18:38] LABS: Basophils % 0.2 % (0.1-2.0); Eosinophils # 0.4 K/mm3 (0.0-0.4); Eosinophils % 4.5 % (0.1-12.0); Hematocrit 49.3 % (42.0-52.0); Hemoglobin 17.1 g/dL (14.1-18.0); Lymphocytes # 1.4 K/mm3 (0.7-4.5); Lymphocytes % 16.6 % (10-50); Mean Corpuscular HGB Conc 34.7 g/dL (31.8-35.4); Mean Corpuscular Hemoglobin 31.7 pg (27.0-31.2); Mean Corpuscular Volume 91.5 fl (80-94); Mean Platelet Volume 8.9 fl (7.4-10.4); Monocytes # 0.7 K/mm3 (0.1-1.0); Monocytes % 7.7 % (1.7-9.3); Neutrophils # 6.1 K/mm3 (1.8-7.8); Neutrophils % 70.5 % (37.0-80.0); Platelet Count 223 K/mm3 (142-424); Red Blood Count 5.39 M/mm3 (4.60-6.20); Red Cell Distribution Width 12.9 % (11.5-17.5); White Blood Count 8.7 K/mm3 (4.8-10.8)
[2024-05-01 20:30] LABS: Alanine Aminotransferase 17 U/L (12-78); Albumin Level 4.2 g/dl (3.5-5.0); Albumin/Globulin Ratio 1.4 (1.1-1.8); Alkaline Phosphatase 103 U/L (38-126); Anion Gap 11.8 mEq/L (5-15); Aspartate Amino Transferase 18 U/L (17-59); Bilirubin,Total 0.8 mg/dl (0.2-1.3); Blood Urea Nitrogen 14 mg/dl (9-20); Carbon Dioxide 27 mmol/L (22.0-30.0); Chloride 101 mmol/L (98-107); Chol/HDL Ratio 5.6 (1-3.5); Cholesterol 158 mg/dl (140-200); Estimated Glomerular Filt Rate 76 ml/min (>60); GFR (African American) 92 ML/MIN (>60); Globulin 3.1 g/dL (1.3-3.2); Glucose 207 mg/dl (74-100); HDL Cholesterol 28 mg/dl (40-60); Potassium 4.8 mmoL/L (3.5-5.1); Sodium 135 mmol/L (136-145); Total Protein,Serum 7.3 g/dl (6.3-8.2); Triglycerides 162 mg/dl (30-150); VLDL Cholesterol 32 mg/dL (0-40)
[2024-05-01 20:41] LABS: Direct LDL Cholesterol 91.27 mg/dL (100-129)
[2024-05-01 21:03] LABS: Prostate Specific Ag Screen 1.8 ng/ml (0.0-4.0); Thyroid Stimulating Hormone 1.32 uIU/mL (0.465-4.68)
[2024-05-01 21:06] LABS: Creatinine,Urine Random 66 mg/dL (Not Estab.)
[2024-05-01 21:07] LABS: Microalbumin/Creatinine Ratio 105.3
== END 2024-05-01 23:59 | disposition home or self-care (01) ==
LOC: LAB.DROPOF 05-02 13:18
PROVIDERS: PCP Family Medicine; Visit Provider Family Medicine
DX: I10 Essential (primary) hypertension (principal); E11.9 Type 2 diabetes mellitus without complications
CPT/HCPCS: 80053; 80061; 82043; 82570; 84443; 85025; G0103